=== PATIENT | male | born 2000 | race Caucasian/White ===

== ENCOUNTER 2019-01-27 17:36 | Emergency (ER) | payer OTHER ==
[~2019-01-27] VITALS: Ht 172.7 cm; Wt 91.6 kg
[2019-01-27 17:53] VITALS: BP 151/94
--- NOTE | 2019-01-27 17:58 | NUR ---
PT TO WAIT IN ER LOBBY. RR EVEN AND UNLABORED. [id number]. VSS
--- NOTE | 2019-01-27 18:39 | NUR ---
PATIENT AMBULATED TO ER BED 10
--- NOTE | 2019-01-27 18:57 | NUR ---
PT PRESENTS TO ED WITH C/O RASH TO NECK, GROIN, ABDOMEN, X 2 WEEK. PATIENT STATES HE NOTICED THE RASH STARTED AFTER HIS TRIP TO [facility]. +ITCHING. DENIES PAIN. PMH- DENIES RX- BENADRYL TO RELIEVE ITCHING, NO RELIEF
[2019-01-27] MEDS ORDERED: FAMOTIDINE 20 MG TAB PO ONE (19:00)
[2019-01-27] MEDS ORDERED: predniSONE 20 MG TAB PO ONE (19:00)
--- NOTE | 2019-01-27 19:30 | NUR ---
Patient appears to be resting comfortably in bed. Vital Signs within normal limits. Respirations even and unlabored.
[2019-01-27 21:00] VITALS: BP 120/81
--- NOTE | 2019-01-27 21:00 | NUR ---
Patient discharged with v/s stable. Written and verbal after care instructions given and explained. Patient alert, oriented and verbalized understanding of instructions. Ambulatory with steady gait. All questions addressed prior to discharge. ID band removed. Patient advised to follow up with PMD. Rx of BENADRYL, CORTISONE, AND PREDNISONE given. Patient educated on indication of medication including possible reaction and side effects. Opportunity to ask questions provided and answered.
== END 2019-01-27 21:00 | disposition home or self-care (01) ==
LOC: MED 17:36
DX: R21 Rash and other nonspecific skin eruption (principal); R03.0 Elevated blood-pressure reading, without diagnosis of hypertension
CPT/HCPCS: 99283; J7512